=== PATIENT | female | born 1995 | race Caucasian/White ===

== ENCOUNTER 2017-11-21 16:30 | Emergency (ER) | payer OTHER, MEDICAID ==
[2017-11-21] MEDS: METHYLPREDNISOLONE 125 MG INJ IV (16:58)
[2017-11-21] MEDS: SOD CHLORIDE 0.9% 1,000 ML IV (16:58)
[2017-11-21] MEDS: IPRATROPIUM (NEB) 0.5 MG/2.5 ML AMP INH (17:18)
[2017-11-21] MEDS: ALBUTEROL 0.5% (NEB) 2.5 MG/0.5 ML AMP INH (17:18)
== END 2017-11-21 19:29 | disposition home or self-care (01) ==
LOC: FTE 16:30
DX: J45.901 Unspecified asthma with (acute) exacerbation (principal)
CPT/HCPCS: 94644; 96374; 99284-25